=== PATIENT | male | born 2000 | race Caucasian/White ===

== ENCOUNTER 2021-04-16 00:41 | Emergency (ER) | payer BC ==
[2021-04-16] MEDS ORDERED: NAPROXEN500 MG PO (06:36)
[2021-04-16] MEDS ORDERED: NORFLEX 100 MG100 MG PO (06:36)
== END 2021-04-16 06:43 | disposition home or self-care (01) ==
LOC: ER1 00:41
DX: S40.012A Contusion of left shoulder, initial encounter (principal); W19.XXXA Unspecified fall, initial encounter
CPT/HCPCS: 73030; 99283